=== PATIENT | female | born 1990 | race Caucasian/White ===

== ENCOUNTER 2023-10-03 08:57 | Emergency (ER) | payer OTHER, SELFPAY ==
[2023-10-03 09:00] VITALS: BP 134/85; PULSE 60; RESP 14; TEMP 36.7; O2SAT 100; BMI 25.8
--- NOTE | 2023-10-03 09:14 | DI.RAD.S_ITS ---
PROCEDURE: XR KNEE RT 3V INDICATIONS: R lateral prox tibia/fibula mass TECHNIQUE: 3 views of the knee were acquired. COMPARISON: None. FINDINGS: Bones: No fractures or dislocations. No suspicious bony lesions. Soft tissues: No joint effusion. No suspicious soft tissue calcifications. IMPRESSION: No acute bony abnormality or significant effusion. Dictated by: Jose F Catalan M.D. on 10/03/2023 at 10:21 Approved by: Jose F Catalan M.D. on 10/03/2023 at 10:21
--- NOTE | 2023-10-03 09:15 | ED.EXTPRO ---
HPI - Extremity Problem General Chief complaint: Extremity Problem,Nontraumatic Stated complaint: R leg pain/ lump on knee & numbness Time Seen by Provider: 10/03/23 09:02 Source: patient Mode of arrival: Ambulatory History of Present Illness HPI Narrative: Patient is a 33-year-old female who is here for evaluation of right leg pain, lump on the outside of the right knee and numbness and tingling. She has been dealing with right leg pain and pain in her foot for some time now. She has been to physical therapy. With the past couple days she has noticed a lump develop on the outside of her right knee. No trauma. Related Data Allergies Allergy/AdvReac Type Severity Reaction Status Date / Time No Known Drug Allergies Allergy Verified 10/03/23 09:09 Review of Systems Constitutional Constitutional: Reports system reviewed and no additional complaints, except as documented Musculoskeletal Musculoskeletal: Reports system reviewed and no additional complaints, except as documented Integumentary/Breasts Skin/Breast: Reports system reviewed and no additional complaints, except as documented Neurologic Neurologic: Reports system reviewed and no additional complaints, except as documented Patient History Social History Smoking Status: Unknown if ever smoked Smoking Status: Unknown if ever smoked alcohol intake frequency: holidays/special occasions only Substance Use Type: does not use Exam Initial Vital Signs Initial Vital Signs: Vital Signs Temperature 98.0 F 10/03/23 09:00 Pulse Rate 60 10/03/23 09:00 Respiratory Rate 14 10/03/23 09:00 Blood Pressure 134/85 10/03/23 09:00 Pulse Oximetry 100 10/03/23 09:00 Oxygen Delivery Method Room Air 10/03/23 09:00 HENNJ Head: normal to inspection and normocephalic Resp Effort & Inspection: normal respiratory effort Skin General: no rashes or lesions noted Extrem Other: Patient has a firm lump in the lateral aspect of the right knee adjacent to the proximal tibia. It does appear to be separate from the proximal fibula. No joint effusion noted. Course Orders Ordered: ED Orders 10/03/23 09:14 XR knee RT 3V Stat Vital Signs Vital signs: Vital Signs - 8 hr 10/03/23 09:00 10/03/23 10:03 Temperature 98.0 F Pulse Rate 60 Respiratory Rate 14 17 Blood Pressure 134/85 Pulse Oximetry 100 Oxygen Delivery Method Room Air MDM - Extremity (Nontraumatic) Imaging Data Extremity x-ray #1: Radiologist's Impression: PROCEDURE: XR KNEE RT 3V INDICATIONS: R lateral prox tibia/fibula mass TECHNIQUE: 3 views of the knee were acquired. COMPARISON: None. FINDINGS: Bones: No fractures or dislocations. No suspicious bony lesions. Soft tissues: No joint effusion. No suspicious soft tissue calcifications. IMPRESSION: No acute bony abnormality or significant effusion. [facility] Narrative Medical decision making narrative: No bony abnormality noted on the x-rays. She does have a solid mass noted on the lateral aspect of the right knee. Bedside ultrasound shows that this potentially is congruent with the capsule in his suspect that this means that there is some sort of a deficit in the soft tissue in this area. I have low suspicion for an acute injury. I did recommend to the patient that she follow-up with her primary doctor and discuss a referral to see Orthopedic surgery. No indication for emergent orthopedic referral. She was given return precautions and follow-up instructions. She expressed understanding agreement. Discharge Plan Departure Patient Disposition: Home Clinical Impression: Knee joint pain Instructions: How To Perform RICE (Rest, Ice, Compress, Elevate), DI for Knee Pain Activity Restrictions/Additional Instructions: Based on your workup here today you have no restrictions on your activities other than avoiding activities that make your symptoms worse. You can walk 1 your leg as tolerated. Recommend Tylenol/ibuprofen. I do recommend that you have a follow-up with orthopedic surgery. You can contact them directly were you may need to talk with your primary doctor about a referral to see that specialty once again. Return to the emergency department for new symptoms. Stand Alone Forms: Patient Portal/API
[2023-10-03 10:03] VITALS: RESP 17
== END 2023-10-03 10:04 | disposition home or self-care (01) ==
PROVIDERS: Emergency Provider Emergency Medicine
DX: M25.561 Pain in right knee (principal)
CPT/HCPCS: 73562; 99281; 99283

== ENCOUNTER → 2024-05-08 08:20 | Outpatient (CLI) | payer OTHER, SELFPAY ==
--- NOTE | 2024-05-08 08:22 | DI.MRI.S_ITS ---
PROCEDURE: MR HIP LT WO/W CON INDICATIONS: SWELLING,MASS/LUMP LEFT LOWER LIMB TECHNIQUE: Noncontrast coronal T1 spin echo and STIR, sagittal T1 spin echo with fat saturation and STIR, axial T1 spin echo and T2 fast spin echo with fat saturation. After the administration of contrast, axial/sagittal/coronal T1 spin echo with fat saturation through the left hip. COMPARISON: None. FINDINGS: Image quality: Excellent. Bones: Marrow signal of the visualized lower lumbar spine, are unremarkable. The sacrum is intact. Mild marrow edema of bilateral inferior sacral alar (8:6), nonspecific and may be degenerative. No acute fracture of the sacrum. The right hip, and the left hip are well aligned. No acute fracture or dislocation of either hip. No avascular necrosis of either femoral head. No significant degenerative changes of either hip. Soft tissues: Superior labral tear. No paralabral cyst. The left iliopsoas, and adductor tendons unremarkable. Low-grade tear of the left hamstring tendon. The left gluteal minimus is unremarkable. Mild peritendinitis of the left gluteal medius. Corresponding to the pain marker, there is a elongated, T2 hyperintense lesion with enhancement, an without well-defined borders, measuring 2.5 x 0.7 by 3.7 cm (axial by craniocaudal dimension), in the subcutaneous fat of the left upper medial thigh (09:26). IMPRESSION: 1. 3.7 cm elongated, enhancing lesion in the subcutaneous fat of the left upper medial thigh, nonspecific. Recommend further evaluation with tissue sampling. 2. Mild marrow edema bilateral inferior sacral alar, nonspecific and may be degenerative. Dictated by: Shavon Otoole M.D. on 05/08/2024 at 12:03 Approved by: Shavon Otoole M.D. on 05/08/2024 at 12:14
== END ==
LOC: MRI 08:21
PROVIDERS: Referring Provider Student in an Organized Health Care Education/Training Program; Visit Provider Student in an Organized Health Care Education/Training Program
DX: S43.432A Superior glenoid labrum lesion of left shoulder, initial encounter (principal); S76.812A Strain of other specified muscles, fascia and tendons at thigh level, left thigh, initial encounter; M76.02 Gluteal tendinitis, left hip; R22.42 Localized swelling, mass and lump, left lower limb
CPT/HCPCS: 73723; A9579